=== PATIENT | male | born 1990 | race African-American/Black ===

== ENCOUNTER 2021-08-21 12:14 | Outpatient (REF) | payer BC, SELFPAY ==
[2021-08-21 13:57] LABS: Hemoglobin 14.2 g/dl (14.0-18.0); Mean Corpuscular Hemoglobin 27.6 pg (27.0-33.0); Mean Corpuscular Volume 83.7 fL (80.0-98.0); Mean Platelet Volume 11.4 fL (9.4-12.4); Platelet Count 262 X10*3/uL (160-400); Red Blood Count 5.14 X10*6/uL (4.60-5.80); Red Cell Distribution Width 12.8 % (11.0-16.0); White Blood Count 6.5 X10*3/uL (4.8-10.8)
[2021-08-21 14:13] LABS: Alanine Aminotransferase 101 U/L (0-40); Albumin Level 4.6 g/dL (3.5-5.0); Alkaline Phosphatase 108 U/L (39-117); Anion Gap 11 (12-20); Aspartate Amino Transferase 40 U/L (5-37); Bilirubin Total 0.5 mg/dL (0.0-1.0); Blood Urea Nitrogen 14 mg/dL (9-16); Carbon Dioxide 27 mmol/L (22-29); Chloride 100 mmol/L (96-108); Cholesterol 162 mg/dL; Estimated Glomerular Filt Rate > 60; Glucose Fasting 304 mg/dL (60-99); HDL Cholesterol 33 mg/dL; LDL Cholesterol Calculated 85 mg/dl; Potassium 4.2 mmol/L (3.3-5.1); Sodium 134 mmol/L (135-145); Total Protein 7.6 g/dL (6.5-8.0); Triglycerides 222 mg/dL
[2021-08-21 14:31] LABS: TSH reflex Free T4 1.16 uIU/mL (0.32-4.0)
== END 2021-08-21 12:15 | disposition home or self-care (01) ==
LOC: HO.WFDLDS 12:14
PROVIDERS: Visit Provider Hospitalist
DX: Z00.00 Encounter for general adult medical examination without abnormal findings (principal); Z13.220 Encounter for screening for lipoid disorders; Z13.29 Encounter for screening for other suspected endocrine disorder
CPT/HCPCS: 36415; 80053; 80061; 84443; 85027

== ENCOUNTER 2023-02-01 10:36 | Outpatient (AMB) | payer OTHER, SELFPAY ==
--- NOTE | 2023-02-01 10:41 | A.OFFPC_ITS ---
Vital Signs 02/01/23 10:42 Height 6 ft 1 in Weight 279 lb BMI 36.8 BP 122/74 Blood Pressure Location Lt brachial Position Sitting Pulse 70 Pulse Source Pulse Oximeter Pulse Oximetry (%) 97 Oxygen Delivery Method Room Air Intake Visit Reasons: f/u diabetes Intake Note: Patient is here to follow up on diabetes. Patient needs refill on his Glipizide. Allergies No Known Allergies Allergy (Verified 02/01/23 10:44) Tobacco use date assessed: 02/01/23 Dental Screening Dental Screen Date: 02/01/23 Did you have a dental visit in the last 12 months?: Yes Did you have a dental problem in the last 6 months where you did not have access to dental care?: No Was dental information given to patient?: No HPI f/u diabetes HPI Details 32 y/o male presents to f/u diabetes. Last A1c 09/28/21 6.2%. A1c today 02/01/23 is 7.1%. He is on metformin 750mg t.i.d and glipizide 5mg daily. He reports weight has been fluctuating. He is still working on more exercise. Pt reports groin itching. 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 1. Little interest or pleasure in doing things: not at all 2. Feeling down, depressed, or hopeless: not at all 3. Trouble falling or staying asleep, or sleeping too much: not at all 4. Feeling tired or having little energy: not at all 5. Poor appetite or overeating: not at all 6. Feeling bad about yourself - or that you are a failure or have let yourself or your family down: not at all 7. Trouble concentrating on things, such as reading the newspaper or watching television: not at all 8. Moving or speaking so slowly that other people could have noticed. Or the opposite - being so fidgety or restless that you have been moving around a lot more than usual: not at all 9. Thoughts that you would be better off or of hurting yourself in some way: not at all Total score: 0 Source: Developed by Drs. Joaquim Larkin, Marinaa Baptiste, Moi Lambert and colleagues, with an educational lois from [employer]. Thrive Questionnaire Date Thrive assessed: 06/30/22 I am a: Patient What is your living situation today?: I have a steady place to live Within the past 12 months, did the food you bought not last and you didn't have the money to get more?: Never true Within the past 12 months, did you worry whether your food would run out before you got money to buy more?: Never true Do you have trouble paying for medicines?: No Do you have trouble getting transportation to medical appointments?: No Do you have trouble paying your heating and electricity bill?: No Do you have trouble taking care of your child, family member or friend?: No Do you have trouble with day-to-day activities such as bathing, preparing meals, shopping, managing finances, etc.?: No Are you currently unemployed and looking for a job?: No Are you interested in more education?: No AUDIT C Alcohol Use Questionnaire (AUDIT-C) 1. How often do you have a drink containing alcohol?: Monthly or less 2. How many drinks containing alcohol do you have on a typical day when you are drinking?: 1 or 2 3. How often do you have six or more drinks on one occasion?: Never Total Score: 1 CLAUDINE-7 AMB Questionnaire CLAUDINE-7 Date CLAUDINE - 7 assessed: 08/21/21 Feeling nervous, anxious, or on edge: 0 = Not at all Not being able to stop or control worryin = Not at all Worrying too much about different things: 0 = Not at all Trouble relaxin = Not at all Being so restless that it is hard to sit still: 0 = Not at all Becoming easily annoyed or irritable: 0 = Not at all Feeling afraid as if something awful might happen: 0 = Not at all Total CLAUDINE-7 score (0-4 normal; 5-9 mild; 10-14 moderate; 15-21 severe): 0 Source: Developed by Drs. Joaquim Larkin, Mariana Baptiste, Moi Lambert and colleagues, with an educational lois from [employer]. Review of Systems Const Denies chills, Denies fatigue, Denies fever(s), Denies headache(s) and Denies weakness ENT Denies dizziness and Denies headache(s) Card Denies chest pain, Denies lightheadedness, Denies dyspnea and Denies other (Palpitations) Resp Denies cough, Denies dyspnea, Denies wheezing and Denies other ( shortness of breath) Musc Denies numbness and Denies tingling Neuro Denies dizziness, Denies headache(s), Denies numbness, Denies tingling, Denies paresthesias and Denies weakness Psych Denies anxiety and Denies depression Endo Denies fatigue Aller/Immun Denies wheezing Physical exam (Primary Care) Vital Signs: Last Vital Signs Pulse 70 02/01/23 10:42 BP 122/74 02/01/23 10:42 Pulse Ox 97 02/01/23 10:42 Oxygen Delivery Method Room Air 02/01/23 10:42 BMI result Body Mass Index 36.8 Tobacco/Smoking Status: Tobacco use Status Tobacco use date assessed 02/01/23 02/01/23 10:50 Patient Tobacco Use Status Never used Tobacco 02/01/23 10:43 e-Cigarette/Vaping Use Never Used 02/01/23 10:43 PHQ-9: PHQ-9 Score PHQ-9: Total score 0 02/01/23 11:17 Thrive Assessment: Date of Thrive Assessment Date Thrive assessed 06/30/22 02/01/23 10:43 Const General: no acute distress and well developed Nutritional Appearance: well nourished Orientation/consciousness: patient oriented x3 HENMT Head: Yes normocephalic and Yes atraumatic Eyes General: appearance normal, both eyes and all related structures Pupils: Equal, round and reactive pupils present EOM: EOMs intact bilaterally Resp Effort & Inspection: normal respiratory effort Auscultation: clear to auscultation bilaterally Cardio Rate: regular rate Rhythm: regular rhythm Heart sounds: S1 normal heart sound present, S2 normal heart sound present, no gallops, no murmurs and no rubs Neuro General: patient oriented x3 and gait normal Cranial nerves: Yes Equal, round and reactive pupils present Psych Affect: normal affect Results AMB Hemoglobin A1c AMB Hemoglobin A1c 7.1 % Last Edit by Josephine Ludwig CMA on 02/01/23 11:00 Results Reviewed Results Reviewed: Laboratory Last Values Hgb A1c (Clinic) 7.1 % (4.0-6.0) H 02/01/23 10:54 Assessment and Plan Assessment & Plan (1) Diabetes: Code(s): E11.9 - Type 2 diabetes mellitus without complications Plan: A1c climbed to 7.1% which is above goal of less than 7.0%. Suboptimal control Will increase glipizide and he will continue metformin Work at diabetic diet and exercise Patient requests nutrition consult so I have ordered this Had diabetic eye exam in October - he will forward the report (2) Pruritus of groin in male: Code(s): L29.8 - Other pruritus Plan: Likely tinea cruris Avoid excess moisture Can use OTC antifungal cream He will let me know if this is not improving Orders: Orders AMB Hemoglobin A1c Today Z13.9 - Encounter for screening, unspecified Referrals Nutrition/Dietitian Referral E11.9 - Type 2 diabetes mellitus without complications Medications: Changed From glipizide ER 5 mg PO DAILY 30 days 30 tabs 1RF To glipizide ER 10 mg (2 x 5 mg) PO DAILY 30 days 60 tabs 1RF Coding Level of Care Code Est Pt Level 3 (59097) Diagnoses Diabetes E11.9 Pruritus of groin in male L29.8
[2023-02-01 10:42] VITALS: BP 122/74; PULSE 70; O2SAT 97; BMI 36.8
== END 2023-02-01 11:30 | disposition home or self-care (01) ==
PROVIDERS: Visit Provider Family Medicine
DX: E11.9 Type 2 diabetes mellitus without complications (principal); L29.8 Other pruritus
CPT/HCPCS: 83036; 99213

== ENCOUNTER 2023-03-16 09:57 | Outpatient (AMB) | payer OTHER, SELFPAY ==
--- NOTE | 2023-03-16 10:10 | A.OFFVIS_ITS ---
Intake VS Expanded 03/16/23 10:12 03/20/23 16:43 Height 6 ft 1 in 6 ft 1 in Weight 275 lb 5.718 oz 275 lb BMI 36.3 36.3 Intake Visit Reasons: DM2/Confirmed Allergies No Known Allergies Allergy (Verified 02/01/23 10:44) HPI Nutrition Presentation Details Pt presents for MNT for T2DM . Pt was referred by Dr. Stoner Pt works 10-12 hr, shifts and reports having challenges with night meals DM dx since 2020 typical meal first meal 12:30 -1: 30 breakfast sand or cheerios with fat free milk snack : fruit 6:30 pm wraps rios/turkey/ham/bologna and salami,, no greens 3am : chips/ salad food frequency fruits: 1-3/d vegetables : 1-3 serving/d starches > 20 serving/d dairy: > 3 serving/d protein > 15 oz/d ETOH: occ Smoking: denies BTK-Kjhyclb-Fb.Jeor Equation Height 6 ft 1 in Weight 275 lb Resting Metabolic Rate 2262.41 Calculated Activity Level Mild Activity Calories Needed to Maintain Weight 3110.81 Diagnosis Nutrition problem #1 food nutri know defi As related to (etiology) #1 diagnosis As evidenced by (sign/symptom) #1 knowledge deficit of diet Monitoring/Goals Nutrition problem monitoring level of knowledge/skill Learning/Education Readiness to learn good Stages of change action Educational materials provided Yes (mealplanning) Most Recent Diabetes Results: Cholesterol 162 mg/dL 08/21/21 HDL Cholesterol 33 mg/dL 08/21/21 Triglycerides 222 mg/dL 08/21/21 Creatinine 1.18 mg/dL (0.5-1.4) 08/21/21 Blood Urea Nitrogen 14 mg/dL (9-16) 08/21/21 Sodium 134 mmol/L (135-145) L 08/21/21 Potassium 4.2 mmol/L (3.3-5.1) 08/21/21 Chloride 100 mmol/L (96-108) 08/21/21 Carbon Dioxide 27 mmol/L (22-29) 08/21/21 Calcium 10.0 mg/dL (8.4-10.2) 08/21/21 AST 40 U/L (5-37) H 08/21/21 ALT 101 U/L (0-40) H 08/21/21 Total Protein 7.6 g/dL (6.5-8.0) 08/21/21 Albumin 4.6 g/dL (3.5-5.0) 08/21/21 [facility] Medical History Elevated blood sugar History of head injury Family History Mother Diabetes Social History Housing: Apartment Patient Tobacco Use Status: Never used Tobacco e-Cigarette/Vaping Use: Never Used Second Hand Smoke Exposure: No service: No Current occupational status: employed 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 Current occupational exposures/hazards: No Cognitive needs: No Hearing needs: No Vision needs: No Assessment & Plan Assessment & Plan (1) Diabetes: Code(s): E11.9 - Type 2 diabetes mellitus without complications Plan: wt: 125 kg Est kcal needs as per MSJ: 3100 (40% carb, 30% protein/fat) Est fluid needs as per 30 ml/d: 3800 Est prot per day as per 1 g/kg bw: 125 Recommend fiber intake : 8-10 g per day and gradually increase to 25-28 g per day for women and 35-38 g for men or as tolerated Recommend sodium intake per day : less than 2000 mg Educated patient on: ( R = reviewed V = verbalizes understanding N/R = needs review N/A = not applicable * Food sources of carbohydrate, adequate serving sizes and its role in various health conditions: R * Differences between complex carbohydrates a simple carbohydrates, role of fiber in diet: R * Differences between types of fats and role in diet (mono on saturated fat fatty acids, saturated fatty acids, trans fats): R basic * Food sources of sodium in salt and healthy modifications for heart health in kidney health: R * Healthy plate method concept: R * Physical activity: Benefits a precaution: R V * Hypoglycemia protocol (rule of 15): R * Dietary prevention of Hyperglycemia: R * ETOH intake : precaution with DM, liver health Patient Instructions: Balance your meals and snacks following healthy plate method Choose a meal replacement once/day see meal ideas as reference Abstain from alcohol consumption Keep physically active Coding Level of Care Code Nutr Indiv Intake (11438) Diagnoses Diabetes E11.9 Time Spent (min) 40
[2023-03-16 10:12] VITALS: BMI 36.3
[2023-03-20 16:43] VITALS: BMI 36.3
== END 2023-03-16 11:06 | disposition home or self-care (01) ==
PROVIDERS: PCP Family Medicine; Visit Provider Dietitian, Registered
DX: E11.9 Type 2 diabetes mellitus without complications (principal)

== ENCOUNTER → 2023-03-16 09:57 | Outpatient (BNVA) | payer OTHER, SELFPAY | PROVIDERS: PCP Family Medicine; Visit Provider Dietitian, Registered | DX: E11.9 Type 2 diabetes mellitus without complications (principal); Z71.3 Dietary counseling and surveillance | CPT/HCPCS: 97802 ==

== ENCOUNTER 2023-05-03 09:21 | Outpatient (AMB) | payer OTHER, SELFPAY ==
[2023-05-03 09:31] VITALS: BP 112/64; PULSE 71; O2SAT 98; BMI 35.9
--- NOTE | 2023-05-03 09:31 | MHC.PC.OV ---
Vital Signs 05/03/23 09:31 Height 6 ft 1 in Weight 272 lb 8 oz BMI 35.9 BP 112/64 Blood Pressure Location Rt brachial Position Sitting Pulse 71 Pulse Source Pulse Oximeter Pulse Oximetry (%) 98 Oxygen Delivery Method Room Air Intake Visit Reasons: f/u diabetes Intake Note: Patient is here today to follow up on his diabetes. He would like refills on both his meds. Allergies No Known Allergies Allergy (Verified 05/03/23 09:34) Tobacco use date assessed: 05/03/23 Dental Screening Dental Screen Date: 05/03/23 Did you have a dental visit in the last 12 months?: Yes Did you have a dental problem in the last 6 months where you did not have access to dental care?: No Was dental information given to patient?: Patient has dentist HPI f/u diabetes HPI Details 32 y/o male presents to f/u diabetes. A1c had climbed to 7.1% so I had increased his glipizide. A1c today 05/03/23 is 6.6%. He is on metformin 750mg t.i.d. and glipizide 10mg daily. Pt notes lowest blood sugar reading he got was in his 70s, no higher than 130s. He does work second shift and eats lunch at around 6pm. He notes last eye exam was in October. HPI Comments History of Present Illness Details Documentation assistance for Xavier Stoner MD, was provided by Chauncey Morrison, Wildlife Ecology Professor on 05/03/2023 10:13 AM EST. I, Dr. Stoner, have read, observed, and verified documentation. 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 Joaquim Larkin, Mariana Baptiste, Moi Lambert and colleagues, with an educational lois from [employer]. Review of Systems Const Denies chills, Denies fatigue, Denies fever(s), Denies headache(s) and Denies weakness ENT Denies dizziness and Denies headache(s) Card Denies dyspnea Resp Denies cough, Denies dyspnea, Denies wheezing and Denies other (shortness of breath) Musc Denies numbness and Denies tingling Neuro Denies dizziness, Denies headache(s), Denies numbness, Denies tingling and Denies weakness Psych Denies anxiety and Denies depression Endo Denies fatigue Aller/Immun Denies wheezing Physical exam (Primary Care) Vital Signs: Last Vital Signs Pulse 71 05/03/23 09:31 BP 112/64 05/03/23 09:31 Pulse Ox 98 05/03/23 09:31 Oxygen Delivery Method Room Air 05/03/23 09:31 BMI result Body Mass Index 35.9 Tobacco/Smoking Status: Tobacco use Status Tobacco use date assessed 05/03/23 05/03/23 09:39 Patient Tobacco Use Status Never used Tobacco 05/03/23 09:39 e-Cigarette/Vaping Use Never Used 05/03/23 09:39 Thrive Assessment: Date of Thrive Assessment Date Thrive assessed 06/30/22 05/03/23 09:39 Const General: well developed; No acute distress Nutritional Appearance: well nourished Orientation/consciousness: patient oriented x3 [facility]: Yes normocephalic and Yes atraumatic Eyes General: appearance normal, both eyes and all related structures Pupils: Equal, round and reactive pupils present EOM: EOMs intact bilaterally Resp Effort & Inspection: normal respiratory effort Auscultation: clear to auscultation bilaterally Cardio Rate: regular rate Rhythm: regular rhythm Heart sounds: S1 normal heart sound present, S2 normal heart sound present, no gallops, no murmurs and no rubs Neuro General: patient oriented x3 and gait normal Cranial nerves: Yes Equal, round and reactive pupils present Psych Affect: normal affect Results AMB Hemoglobin A1c AMB Hemoglobin A1c 6.6 % Last Edit by Josephine Ludwig CMA on 05/03/23 09:56 Results Reviewed Results Reviewed: Laboratory Last Values Hgb A1c (Clinic) 6.6 % (4.0-6.0) H 05/03/23 09:55 Assessment and Plan Assessment & Plan (1) Diabetes: Code(s): E11.9 - Type 2 diabetes mellitus without complications Plan: A1c?now?6.6%?but?he?has?been?getting?some?blood?sugars?down?into?the?low?70s?with?some?shakiness?and?sweating. Goal?is?less?than?7.0% He?will?continue?metformin?he?will?take?glipizide?ER?5?mg?in?the?morning?and?2.5?mg?in?the?afternoon If?blood?sugars?are?getting?close?to?70?and?he?is?feeling?sweaty?or?shaky,?he?will?have?a?small?snack?and?recheck?blood?sugars?in?about?15?minutes Continue?diabetic?diet Had?eye?exam?in?May?and?is?up-to-date. Orders: Orders AMB Hemoglobin A1c Today Z13.9 - Encounter for screening, unspecified Coding Level of Care Code Est Pt Level 3 (95166) Diagnoses Diabetes E11.9
== END 2023-05-03 10:15 | disposition home or self-care (01) ==
PROVIDERS: PCP Family Medicine; Visit Provider Family Medicine
DX: E11.9 Type 2 diabetes mellitus without complications (principal)
CPT/HCPCS: 83036; 99213

== ENCOUNTER 2023-05-03 11:36 | Outpatient (AMB) | payer OTHER, SELFPAY ==
--- NOTE | 2023-05-03 11:41 | A.OFFVIS_ITS ---
Intake VS Expanded 05/03/23 12:22 Height 6 ft 1 in Weight 272 lb 8 oz BMI 35.9 Intake Visit Reasons: T2DM Allergies No Known Allergies Allergy (Verified 05/03/23 09:34) HPI Nutrition Presentation Details Pt presents for MNT for T2DM Pt reports following healthy plate method , reducing on sugars. Pt reports having had low blood glucose reactions, feeling sweaty and shaky. Pt saw PCP today and Glipizide dosage was reduced. Pt reports keeping hydrated , drinking water with meals, choosing low sugar beverages and doing his best at reducing on high sugar foods/pastries and similar foods. 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 Current occupational exposures/hazards: No Cognitive needs: No Hearing needs: No Vision needs: No Assessment & Plan Assessment & Plan (1) Diabetes: Code(s): E11.9 - Type 2 diabetes mellitus without complications Plan: wt: 125 kg (123 kg on 04/2023) Est kcal needs as per MSJ: 3100 (40% carb, 30% protein/fat) Est fluid needs as per 30 ml/d: 3800 Est prot per day as per 1 g/kg bw: 123 Recommend fiber intake : 8-10 g per day and gradually increase to 25-28 g per day for women and 35-38 g for men or as tolerated Recommend sodium intake per day : less than 2000 mg Educated patient on: ( R = reviewed V = verbalizes understanding N/R = needs review N/A = not applicable * Food sources of carbohydrate, adequate serving sizes and its role in various health conditions: R * Differences between complex carbohydrates a simple carbohydrates, role of fiber in diet: R * Differences between types of fats and role in diet (mono on saturated fat fatty acids, saturated fatty acids, trans fats): R basic * Food sources of sodium in salt and healthy modifications for heart health in kidney health: R ,V * Healthy plate method concept: R * Physical activity: Benefits a precaution: R V * Hypoglycemia protocol (rule of 15): R * Dietary prevention of Hyperglycemia: R * ETOH intake : precaution with DM, liver health Patient Instructions: Follow DASH diet ( low sodium options) Continue working on having smaller meals throghout the day, choosing higher fiber foods and including lean protein foods Include 4 serving of calcium and vit d per day ( low fat milk, yogurt, spinach, kale, okra, collards, white beans, keep physically active goal 150 min per week follow rule of 15 to treat low blood sugar (treat with 15 g carbs , recheck in 15 minutes , repeat treatment if blood sugar continues below 15) inform your doctor of low blood sugar reactions for further asessment. Coding Level of Care Code Nutr Indiv Subseq (08033) Diagnoses Diabetes E11.9 Time Spent (min) 30
[2023-05-03 12:22] VITALS: BMI 35.9
== END 2023-05-03 12:21 | disposition home or self-care (01) ==
PROVIDERS: PCP Family Medicine; Visit Provider Dietitian, Registered
DX: E11.9 Type 2 diabetes mellitus without complications (principal)

== ENCOUNTER → 2023-05-03 11:36 | Outpatient (BNVA) | payer OTHER, SELFPAY | PROVIDERS: PCP Family Medicine; Visit Provider Dietitian, Registered | DX: Z71.3 Dietary counseling and surveillance (principal); E11.9 Type 2 diabetes mellitus without complications | CPT/HCPCS: 97803 ==

== ENCOUNTER 2023-08-02 11:28 | Outpatient (AMB) | payer OTHER, SELFPAY ==
[2023-08-02 11:41] VITALS: BP 132/66; PULSE 81; O2SAT 99; BMI 35.8
--- NOTE | 2023-08-02 11:41 | MHC.PC.OV ---
Vital Signs 08/02/23 11:41 Height 6 ft 1 in Weight 271 lb BMI 35.8 BP 132/66 Blood Pressure Location Lt brachial Position Sitting Pulse 81 Pulse Source Pulse Oximeter Pulse Oximetry (%) 99 Oxygen Delivery Method Room Air Intake Visit Reasons: f/u diabetes Intake Note: Patient is here to follow up on his diabetes today. Allergies shellfish derived Allergy (Mild, Verified 08/02/23 11:43) Swelling Tobacco use date assessed: 08/02/23 HPI f/u diabetes HPI Details 33 y/o male presents to f/u diabetes. Had recently decreased his glipizide. A1c today 08/02/23 5.9%. 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 Joaquim Larkin, Mariana Baptiste, Moi Lambert and colleagues, with an educational lois from [employer]. Review of Systems Const Denies chills, Denies fatigue, Denies fever(s), Denies headache(s) and Denies weakness ENT Denies dizziness and Denies headache(s) Card Denies chest pain, Denies lightheadedness, Denies dyspnea and Denies other (Palpitations) Resp Denies cough, Denies dyspnea, Denies wheezing and Denies other ( shortness of breath) Musc Denies numbness and Denies tingling Neuro Denies dizziness, Denies headache(s), Denies numbness, Denies tingling, Denies paresthesias and Denies weakness Psych Denies anxiety and Denies depression Endo Denies fatigue Aller/Immun Denies wheezing Physical exam (Primary Care) Vital Signs: Last Vital Signs Pulse 81 08/02/23 11:41 BP 132/66 08/02/23 11:41 Pulse Ox 99 08/02/23 11:41 Oxygen Delivery Method Room Air 08/02/23 11:41 BMI result Body Mass Index 35.8 Tobacco/Smoking Status: Tobacco use Status Tobacco use date assessed 08/02/23 08/02/23 11:44 Patient Tobacco Use Status Never used Tobacco 08/02/23 11:44 e-Cigarette/Vaping Use Never Used 08/02/23 11:44 Thrive Assessment: Date of Thrive Assessment Date Thrive assessed 06/30/22 08/02/23 11:44 Const General: no acute distress and well developed Nutritional Appearance: well nourished Orientation/consciousness: patient oriented x3 HENMT Head: Yes normocephalic and Yes atraumatic Eyes General: appearance normal, both eyes and all related structures Pupils: Equal, round and reactive pupils present EOM: EOMs intact bilaterally Resp Effort & Inspection: normal respiratory effort Auscultation: clear to auscultation bilaterally Cardio Rate: regular rate Rhythm: regular rhythm Heart sounds: S1 normal heart sound present, S2 normal heart sound present, no gallops, no murmurs and no rubs Neuro General: patient oriented x3 and gait normal Cranial nerves: Yes Equal, round and reactive pupils present Psych Affect: normal affect Results AMB Hemoglobin A1c AMB Hemoglobin A1c 5.9 % Last Edit by Josephine Ludwig CMA on 08/02/23 11:58 Results Reviewed Results Reviewed: Laboratory Last Values Hgb A1c (Clinic) 5.9 % (4.0-6.0) 08/02/23 11:50 Assessment and Plan Assessment & Plan (1) Diabetes: Code(s): E11.9 - Type 2 diabetes mellitus without complications Plan: Had Decreased?glipizide?and?A1c?still?shows?good?control;?5.9%.??Goal?is?less?than?7.0% He?still?notes?some?low?blood?sugars. Will?decrease?glipizide?again?from?5?mg?a.m.?and?2.5?mg?p.m. to 2.5?mg?b.i.d. Continue?metformin?as?prescribed Continue?diabetic?diet (2) Jock itch: Code(s): B35.6 - Tinea cruris Plan: Will?send?script?for?clotrimazole Avoid?excess?moisture?but?do?not?dry?out?skin Change?undergarments?twice?a?day Orders: Orders AMB Hemoglobin A1c Today Z13.9 - Encounter for screening, unspecified Complete Blood Count Auto Diff Today Z00.00 - Encounter for general adult medical examination without abnormal findings Lipid Panel Today Z00.00 - Encounter for general adult medical examination without abnormal findings Comprehensive Waves. Panel Fast Today Z00.00 - Encounter for general adult medical examination without abnormal findings Microalbumin, Random (w Creat) Today I10 - Essential (primary) hypertension UA and rflx microscopic Today Z00.00 - Encounter for general adult medical examination without abnormal findings TSH reflex Free T4 Today Z00.00 - Encounter for general adult medical examination without abnormal findings Medications: New clotrimazole 1% 1 appl topical BID 45 grams 1RF 2 weeks Changed From glipizide ER 10 mg (2 x 5 mg) PO DAILY 30 days 60 tabs 1RF To glipizide ER 2.5 mg (1/2 x 5 mg) PO BID 30 days 30 tabs 1RF Coding Level of Care Code Est Pt Level 3 (49879) Diagnoses Diabetes E11.9 Jock itch B35.6
== END 2023-08-02 12:28 | disposition home or self-care (01) ==
PROVIDERS: PCP Family Medicine; Visit Provider Family Medicine
DX: E11.9 Type 2 diabetes mellitus without complications (principal); B35.6 Tinea cruris
CPT/HCPCS: 83036; 99213

== ENCOUNTER 2023-08-02 12:25 | Outpatient (REF) | payer OTHER, SELFPAY ==
[2023-08-02 14:48] LABS: MANUAL DIFF FLAG NO
[2023-08-02 14:53] LABS: Basophils Percent Auto 0.3 % (0-2); Eosinophils Absolute Auto 0.4 X10*3/uL (0.0-0.4); Eosinophils Percent Auto 6.2 % (0-4); Hematocrit 42.9 % (42.0-52.0); Hemoglobin 14.1 g/dl (14.0-18.0); Imm Gran Abs Auto 0.01 X10*3/uL (0.00-0.03); Imm Gran Pct Auto 0.2 % (0.0-0.4); Lymphocytes Percent Auto 33.8 % (20-40); Mean Corpuscular HGB Conc 32.9 g/dl (31.0-36.0); Mean Corpuscular Hemoglobin 27.6 pg (27.0-33.0); Mean Corpuscular Volume 84.1 fL (80.0-98.0); Mean Platelet Volume 9.9 fL (9.4-12.4); Monocytes Absolute Auto 0.5 X10*3/uL (0.1-1.2); Monocytes Percent Auto 8.1 % (2-11); Neutrophils Percent Auto 51.4 % (45-73); Platelet Count 306 X10*3/uL (160-400); Red Cell Distribution Width 13.8 % (11.0-16.0); White Blood Count 5.8 X10*3/uL (4.8-10.8)
[2023-08-02 15:34] LABS: Alanine Aminotransferase 30 U/L (0-40); Albumin Level 4.4 g/dL (3.5-5.0); Alkaline Phosphatase 74 U/L (39-117); Anion Gap 11 (12-20); Aspartate Amino Transferase 17 U/L (5-37); Bilirubin Total 0.4 mg/dL (0.0-1.0); Blood Urea Nitrogen 16 mg/dL (9-16); Calcium 9.8 mg/dL (8.4-10.2); Carbon Dioxide 26 mmol/L (22-29); Chloride 106 mmol/L (96-108); Cholesterol 121 mg/dL (<200); Estimated Glomerular Filt Rate > 60; Glucose Fasting 83 mg/dL (60-99); HDL Cholesterol 35 mg/dL (>40); LDL Cholesterol Calculated 77 mg/dL (<100); Potassium 4.4 mmol/L (3.3-5.1); Sodium 139 mmol/L (135-145); Total Protein 7.6 g/dL (6.5-8.0); Triglycerides 48 mg/dL (<150)
[2023-08-02 15:40] LABS: TSH reflex Free T4 0.97 uIU/mL (0.32-4.0)
== END 2023-08-02 12:26 | disposition home or self-care (01) ==
LOC: HO.WFDLDS 12:25
PROVIDERS: Visit Provider Family Medicine
DX: Z00.00 Encounter for general adult medical examination without abnormal findings (principal)
CPT/HCPCS: 36415; 80053; 80061; 84443; 85025

== ENCOUNTER 2023-08-03 11:23 | Outpatient (AMB) | payer OTHER, SELFPAY ==
[2023-08-03 11:41] VITALS: BMI 35.6
--- NOTE | 2023-08-03 11:41 | A.OFFVIS_ITS ---
Intake VS Expanded 08/03/23 11:41 Height 6 ft 1 in Weight 269 lb 13.533 oz BMI 35.6 Intake Visit Reasons: T2DM/CONFIRMED Allergies shellfish derived Allergy (Mild, Verified 08/02/23 11:43) Swelling HPI Nutrition Presentation Details Pt presents for MNT follow up for T2DM Patient reports doing well, reports working on having small meals throughout the day. Pt reports having fruits 4+ /day having dairy/yogurt: daily 2+ fish : 2 x/wk ( tuna, salmon) denies constipation /diarrhea/vomiting physical activity: 1 hour at gym and also movement at work Hemoglobin A1c has improved: at 5.9% on June 2023 Most Recent Diabetes Results: Cholesterol 121 mg/dL (<200) 08/02/23 HDL Cholesterol 35 mg/dL (>40) L 08/02/23 Triglycerides 48 mg/dL (<150) 08/02/23 Creatinine 1.02 mg/dL (0.5-1.4) 08/02/23 Blood Urea Nitrogen 16 mg/dL (9-16) 08/02/23 Sodium 139 mmol/L (135-145) 08/02/23 Potassium 4.4 mmol/L (3.3-5.1) 08/02/23 Chloride 106 mmol/L (96-108) 08/02/23 Carbon Dioxide 26 mmol/L (22-29) 08/02/23 Calcium 9.8 mg/dL (8.4-10.2) 08/02/23 AST 17 U/L (5-37) 08/02/23 ALT 30 U/L (0-40) 08/02/23 Total Protein 7.6 g/dL (6.5-8.0) 08/02/23 Albumin 4.4 g/dL (3.5-5.0) 08/02/23 [facility] Medical History Elevated blood sugar History of head injury Family History Mother Diabetes Social History Housing: Apartment Patient Tobacco Use Status: Never used Tobacco e-Cigarette/Vaping Use: Never Used Second Hand Smoke Exposure: No service: No Current occupational status: employed 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 Current occupational exposures/hazards: No Cognitive needs: No Hearing needs: No Vision needs: No Assessment & Plan Assessment & Plan (1) Diabetes: Code(s): E11.9 - Type 2 diabetes mellitus without complications Plan: wt: 125 kg (123 kg on 04/2023) , 123 kg (July 2023) Est kcal needs as per MSJ: 3100 (40% carb, 30% protein/fat) Est fluid needs as per 30 ml/d: 3800 Est prot per day as per 1 g/kg bw: 123 Recommend fiber intake : 8-10 g per day and gradually increase to 25-28 g per day for women and 35-38 g for men or as tolerated Recommend sodium intake per day : less than 2000 mg Educated patient on: ( R = reviewed V = verbalizes understanding N/R = needs review N/A = not applicable * Food sources of carbohydrate, adequate serving sizes and its role in various health conditions: R * Differences between complex carbohydrates a simple carbohydrates, role of fiber in diet: R * Differences between types of fats and role in diet (mono on saturated fat fatty acids, saturated fatty acids, trans fats): R basic * Food sources of sodium in salt and healthy modifications for heart health in kidney health: R ,V * Healthy plate method concept: R * Physical activity: Benefits a precaution: R V * Hypoglycemia protocol (rule of 15): R * Dietary prevention of Hyperglycemia: R * ETOH intake : precaution with DM, liver health Patient Instructions: Continue working on following healthy plate method, being mindful of high sugar foods Keep hydrated by having water with meals and/or snacks Include food sources of vitamin-D, calcium Treat low blood glucose by following rule of 15, communicate with her doctor if having low blood sugar episodes (blood sugar less than 70) Coding Level of Care Code Nutr Indiv Subseq (47616) Diagnoses Diabetes E11.9 Time Spent (min) 20
== END 2023-08-03 12:26 | disposition home or self-care (01) ==
PROVIDERS: PCP Family Medicine; Visit Provider Dietitian, Registered
DX: E11.9 Type 2 diabetes mellitus without complications (principal)

== ENCOUNTER → 2023-08-03 11:23 | Outpatient (BNVA) | payer OTHER, SELFPAY | PROVIDERS: PCP Family Medicine; Visit Provider Dietitian, Registered | DX: E11.9 Type 2 diabetes mellitus without complications (principal); Z71.3 Dietary counseling and surveillance | CPT/HCPCS: 97803 ==

== ENCOUNTER 2023-11-01 12:57 | Outpatient (AMB) | payer OTHER, SELFPAY ==
--- NOTE | 2023-11-01 13:02 | A.OFFVIS_ITS ---
VS Expanded 11/01/23 13:03 Height 6 ft 1 in Weight 274 lb 4.081 oz BMI 36.2 Intake Visit Reasons: T2DM/ CONFIRMED Allergies shellfish derived Allergy (Mild, Verified 08/02/23 11:43) Swelling Nutrition Presentation Details: Pt presents for MNT f/u for T2DM Pt reports doing ok. Reports noticing bg gradually increasing related to increased appetite and including higher sugar foods in diet. 14 d bg average 145 mg/dl BS Monitoring Most Recent Diabetes Results: Cholesterol 121 mg/dL (<200) 08/02/23 HDL Cholesterol 35 mg/dL (>40) L 08/02/23 Triglycerides 48 mg/dL (<150) 08/02/23 Creatinine 1.02 mg/dL (0.5-1.4) 08/02/23 Blood Urea Nitrogen 16 mg/dL (9-16) 08/02/23 Sodium 139 mmol/L (135-145) 08/02/23 Potassium 4.4 mmol/L (3.3-5.1) 08/02/23 Chloride 106 mmol/L (96-108) 08/02/23 Carbon Dioxide 26 mmol/L (22-29) 08/02/23 Calcium 9.8 mg/dL (8.4-10.2) 08/02/23 AST 17 U/L (5-37) 08/02/23 ALT 30 U/L (0-40) 08/02/23 Total Protein 7.6 g/dL (6.5-8.0) 08/02/23 Albumin 4.4 g/dL (3.5-5.0) 08/02/23 [facility] Medical History Elevated blood sugar History of head injury Family History Mother Diabetes Social History Housing: Apartment Patient Tobacco Use Status: Never used Tobacco e-Cigarette/Vaping Use: Never Used Second Hand Smoke Exposure: No service: No Current occupational status: employed 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 Current occupational exposures/hazards: No Cognitive needs: No Hearing needs: No Vision needs: No Assessment & Plan Assessment & Plan (1) Diabetes: Code(s): E11.9 - Type 2 diabetes mellitus without complications Category: Medical Plan: wt: 125 kg (123 kg on 04/2023) , 123 kg (July 2023), 124.5 (10/2023) Est kcal needs as per MSJ: 3100 (40% carb, 30% protein/fat) Est fluid needs as per 30 ml/d: 3800 Est prot per day as per 1 g/kg bw: 123 Recommend fiber intake : 8-10 g per day and gradually increase to 25-28 g per day for women and 35-38 g for men or as tolerated Recommend sodium intake per day : less than 2000 mg Educated patient on: ( R = reviewed V = verbalizes understanding N/R = needs review N/A = not applicable * Food sources of carbohydrate, adequate serving sizes and its role in various health conditions: R * Differences between complex carbohydrates a simple carbohydrates, role of fiber in diet: R * Differences between types of fats and role in diet (mono on saturated fat fatty acids, saturated fatty acids, trans fats): R basic * Food sources of sodium in salt and healthy modifications for heart health in kidney health: R ,V * Healthy plate method concept: R * Physical activity: Benefits a precaution: R V * Hypoglycemia protocol (rule of 15): R * Dietary prevention of Hyperglycemia: R * ETOH intake : precaution with DM, liver health Patient Instructions: Resume reducing on simple carbohydrates (pastries/cookies and ice cream and similar foods) Try fruit/herb infused water Include high fiber foods to help with satiety (raw veg, raw fruits, whole grain foods) Keep maintaining physically active Consider taking a multivitamin Coding Level of Care Code Nutr Indiv Subseq (07179) Diagnoses Diabetes E11.9 Time Spent (min) 30
[2023-11-01 13:03] VITALS: BMI 36.2
== END 2023-11-01 13:45 | disposition home or self-care (01) ==
PROVIDERS: PCP Family Medicine; Visit Provider Dietitian, Registered
DX: E11.9 Type 2 diabetes mellitus without complications (principal)

== ENCOUNTER → 2023-11-01 12:57 | Outpatient (BNVA) | payer BC, SELFPAY | PROVIDERS: PCP Family Medicine; Visit Provider Dietitian, Registered | DX: E11.9 Type 2 diabetes mellitus without complications (principal); Z71.3 Dietary counseling and surveillance | CPT/HCPCS: 97803 ==

== ENCOUNTER 2023-11-15 10:54 | Outpatient (AMB) | payer BC, SELFPAY ==
[2023-11-15 10:59] VITALS: BP 122/62; PULSE 71; O2SAT 97; BMI 35.6
--- NOTE | 2023-11-15 10:59 | MHC.PC.OV ---
Vital Signs 11/15/23 10:59 Height 6 ft 1 in Weight 269 lb 8 oz BMI 35.6 BP 122/62 Blood Pressure Location Lt brachial Position Sitting Pulse 71 Pulse Source Pulse Oximeter Pulse Oximetry (%) 97 Oxygen Delivery Method Room Air Intake Visit Reasons: CPE with f/u labs and health maint. Intake Note: Patient is here for his physical and follow up on labs. Allergies shellfish derived Allergy (Mild, Verified 11/15/23 11:01) Swelling Medication List - Last Reconciled 11/15/23 by Xavier Stoner MD clotrimazole 1% 1 appl topical BID 2 weeks glipizide ER 2.5 mg (1/2 x 5 mg) PO BID 30 days metformin 750 mg (1.5 x 500 mg) PO TIDWMEAL 30 days Tobacco use date assessed: 11/15/23 Dental Screening Dental Screen Date: 11/15/23 Did you have a dental visit in the last 12 months?: Yes Did you have a dental problem in the last 6 months where you did not have access to dental care?: No Was dental information given to patient?: Patient has dentist HPI CPE with f/u labs and health maint. HPI Details 33 y/o male presents for a CPE with f/u labs and health maintenance. Labs were drawn 08/02/23. Reviewed labs with pt. Triglycerides 48. TC 121. LDL 77. HDL low at 35. Last A1c 08/02/23 5.9%. He is on metformin 750mg, glipizide 2.5mg. A1c today 11/15/23 6.6%. Pt notes he keeps himself active. 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 1. Little interest or pleasure in doing things: not at all 2. Feeling down, depressed, or hopeless: not at all 3. Trouble falling or staying asleep, or sleeping too much: not at all 4. Feeling tired or having little energy: not at all 5. Poor appetite or overeating: not at all 6. Feeling bad about yourself - or that you are a failure or have let yourself or your family down: not at all 7. Trouble concentrating on things, such as reading the newspaper or watching television: not at all 8. Moving or speaking so slowly that other people could have noticed. Or the opposite - being so fidgety or restless that you have been moving around a lot more than usual: not at all 9. Thoughts that you would be better off or of hurting yourself in some way: not at all Total score: 0 Depression Screening Interpretation: Negative Depression Screening Done: Yes 90503 - PHQ-9 Billing: Yes Source: Developed by Drs. Joaquim Larkin, Mariana Baptiste, Moi Lambert and colleagues, with an educational lois from [employer]. Thrive Questionnaire Date Thrive assessed: 11/15/23 I am a: Patient What is your living situation today?: I have a steady place to live Within the past 12 months, did the food you bought not last and you didn't have the money to get more?: Never true Within the past 12 months, did you worry whether your food would run out before you got money to buy more?: Never true Do you have trouble paying for medicines?: No Do you have trouble getting transportation to medical appointments?: No Do you have trouble paying your heating and electricity bill?: No Do you have trouble taking care of your child, family member or friend?: No Do you have trouble with day-to-day activities such as bathing, preparing meals, shopping, managing finances, etc.?: No Are you currently unemployed and looking for a job?: No Are you interested in more education?: Yes THRIVE Score: 0 AUDIT C Alcohol Use Questionnaire (AUDIT-C) 1. How often do you have a drink containing alcohol?: Never 3. How often do you have six or more drinks on one occasion?: Never Total Score: 0 CLAUDINE-7 AMB Questionnaire CLAUDINE-7 Date CLAUDINE - 7 assessed: 11/15/23 Feeling nervous, anxious, or on edge: 0 = Not at all Not being able to stop or control worryin = Not at all Worrying too much about different things: 0 = Not at all Trouble relaxin = Not at all Being so restless that it is hard to sit still: 0 = Not at all Becoming easily annoyed or irritable: 0 = Not at all Feeling afraid as if something awful might happen: 0 = Not at all Total CLAUDINE-7 score (0-4 normal; 5-9 mild; 10-14 moderate; 15-21 severe): 0 Source: Developed by Drs. Joaquim Larkin, Mariana Baptiste, Moi Lambert and colleagues, with an educational lois from [employer]. CLAUDINE-7 Assessment Billing CLAUDINE-7 Assessment Tool: CLAUDINE-7 Assessment 23888 Review of Systems Const Denies chills, Denies fatigue, Denies fever(s), Denies headache(s) and Denies weakness Eyes Denies change in vision ENT Denies dizziness, Denies headache(s), Denies hearing loss, Denies nasal congestion, Denies sinus pain, Denies sinus pressure and Denies sore throat Card Denies chest pain, Denies lightheadedness, Denies dyspnea and Denies other (palpitations) Resp Denies cough, Denies dyspnea and Denies wheezing GI Denies abdominal pain, Denies melena, Denies hematochezia, Denies change in bowel habits, Denies dyspepsia and Denies nausea Denies hematuria and Denies dysuria Musc Denies abnormal gait, Denies myalgias, Denies arthralgias, Denies numbness and Denies tingling Skin/Breast Denies rash, Denies unusual bruising and Denies wounds Neuro Denies abnormal gait, Denies dizziness, Denies headache(s), Denies memory loss, Denies numbness, Denies Sensory deficit (Neuro), Denies tingling and Denies weakness Psych Denies anxiety, Denies depression and Denies memory loss Endo Denies cold intolerance, Denies fatigue, Denies heat intolerance, Denies polydipsia and Denies polyuria Gal/Lymph Denies easy bleeding and Denies easy bruising Aller/Immun Denies wheezing Physical exam (Primary Care) Vital Signs: Last Vital Signs Pulse 71 11/15/23 10:59 BP 122/62 11/15/23 10:59 Pulse Ox 97 11/15/23 10:59 Oxygen Delivery Method Room Air 11/15/23 10:59 BMI result Body Mass Index 35.6 Tobacco/Smoking Status: Tobacco use Status Tobacco use date assessed 11/15/23 11/15/23 11:02 Patient Tobacco Use Status Never used Tobacco 11/15/23 10:59 e-Cigarette/Vaping Use Never Used 11/15/23 10:59 PHQ-9: PHQ-9 Score PHQ-9: Total score 0 11/15/23 11:13 Depression Screening Interpretation: Negative Thrive Assessment: Date of Thrive Assessment Date Thrive assessed 11/15/23 11/15/23 11:09 Const General: no acute distress, well developed, alert and awake Nutritional Appearance: well nourished Orientation/consciousness: patient oriented x3 HENMT Head: Yes normocephalic and Yes atraumatic Ears: hearing grossly normal bilaterally and TM's normal bilaterally General nose exam: Normal external nose present and Normal nares present Mouth: Normal oral and palatal mucosa present and moist mucous membranes Teeth and gingiva: dentition normal Throat: Yes posterior oropharynx normal Eyes General: appearance normal, both eyes and all related structures Pupils: Equal, round and reactive pupils present and Pupil accommodation reflex normal EOM: EOMs intact bilaterally Neck Neck: Yes normal visual inspection, Yes no lymphadenopathy and Yes trachea midline Thyroid: Thyroid normal Carotids: no bruits Lymphatic: no lymphadenopathy noted Chest Chest palpation & inspection: normal inspection of the chest Resp Effort & Inspection: normal respiratory effort Auscultation: clear to auscultation bilaterally Cardio Rate: regular rate Rhythm: regular rhythm Heart sounds: S1 normal heart sound present, S2 normal heart sound present, no gallops, no murmurs and no rubs Bruits: no abdominal aortic bruits and no carotid bruits GI Palpation (GI): No Abdominal aortic bruit present, Soft to palpation, nontender, No hepatosplenomegaly present and No Rebound tenderness present Auscultation: normal bowel sounds General: Yes no CVA tenderness Back/Spine/Pelvis Back: no CVA tenderness Cervical Spine: cervical ROM normal and No Cervical spine tenderness Thoracic/Lumbar Spine: thoraco-lumbar ROM normal, No pain with thoraco-lumbar ROM, No thoracic spinal tenderness and No lumbar spinal tenderness Skin Lesions: no lesions Rashes: no rashes Trauma: no lacerations or abrasions Wounds: no wounds Nails: normal Neuro General: patient oriented x3 Cranial nerves: Yes Equal, round and reactive pupils present Cognition (Neuro): normal cognition Gait exam (Neuro): Normal gait present Motor exam (neuro): 5/5 motor strength present throughout Sensory Exam: No Sensory deficit (Neuro) Deep tendon reflexes (DTR's): Right patellar reflex intensity grade: 2+ and Left patellar reflex intensity grade: 2+ Extrem General: Yes normal to inspection and No edema Psych Appearance: grossly normal Affect: normal affect Attitude: cooperative Thought process: Normal thought process present Results AMB Hemoglobin A1c AMB Hemoglobin A1c 6.6 % Last Edit by Josephine Ludwig CMA on 11/15/23 11:20 Assessment and Plan Assessment & Plan (1) Adult general medical exam: Code(s): Z00.00 - Encounter for general adult medical examination without abnormal findings Plan: 33-year-old?male?presents?for?complete?physical?exam Encouraged?healthy?diet?with?active?lifestyle?and?plenty?of?exercise (2) Diabetes: Code(s): E11.9 - Type 2 diabetes mellitus without complications Plan: A1c?climbed?to?6.6%.??He?was?out?of?his?glipizide?for?while?but?has?it?again. I?had?decreased?his?glipizide?due?to?some?low?blood?sugars?at?prior?visit?where?his?A1c?was?5.9%. No?recent?low?blood?sugars Continue?current?medication?regimen Continue?diabetic?diet Continue?exercise?and?weight?loss. (3) Low HDL (under 40): Code(s): E78.6 - Lipoprotein deficiency Plan: HDL?is?a?little?too?low.??He?is?already?exercising?quite?a?bit. Allergy?to?shellfish?in?concerned?about?using a?fish?oil?tablet. He?can?try?flaxseed?oil (4) Allergy to shellfish: Code(s): Z91.013 - Allergy to seafood Plan: Gave?patient?a?script?for?EpiPen Orders: Orders AMB Hemoglobin A1c Today Z13.9 - Encounter for screening, unspecified Medications: New epinephrine (EpiPen 2-Walter) 0.3 mg (0.3 mL) IM Q4H 30 days PRN 2 ea 2RF anaphylaxis Z91.013 - Allergy to seafood Coding Level of Care Code Est Pt Level 3 (54753) Est Pt Prev Care 18-39y(47290) Diagnoses Adult general medical exam Z00.00 Diabetes E11.9 Low HDL (under 40) E78.6 Allergy to shellfish Z91.013 Additional Codes CLAUDINE-7 Assessment Billing - CLAUDINE-7 Assessment Tool: CLAUDINE-7 Assessment 22639 ([id number])
== END 2023-11-15 11:37 | disposition home or self-care (01) ==
PROVIDERS: PCP Family Medicine; Visit Provider Family Medicine
DX: Z00.00 Encounter for general adult medical examination without abnormal findings (principal); E11.9 Type 2 diabetes mellitus without complications; E78.6 Lipoprotein deficiency; Z91.013 Allergy to seafood
CPT/HCPCS: 83036; 99213; 99395

== ENCOUNTER 2024-02-21 09:37 | Outpatient (AMB) | payer BC, SELFPAY ==
--- NOTE | 2024-02-21 09:45 | A.OFFPC_ITS ---
Vital Signs 02/21/24 09:47 Height 6 ft 1 in Weight 274 lb 8 oz BMI 36.2 BP 110/70 Blood Pressure Location Rt brachial Position Sitting Respiration 12 Pulse 75 Pulse Source Pulse Oximeter Temp 97.3 F Temp Source Tympanic Pulse Oximetry (%) 97 Oxygen Delivery Method Room Air Intake Visit Reasons: f/u diabetes, hypertension Intake Note: F/u for DM and HTN Allergies shellfish derived Allergy (Mild, Verified 02/21/24 09:46) Swelling Tobacco use date assessed: 11/15/23 Dental Screening Dental Screen Date: 11/15/23 HPI f/u diabetes, hypertension HPI Details 33 y/o male presents to f/u diabetes. Last A1c 11/15/23 6.6%. Had been having complaints of low blood sugars. He is on metformin 750mg, glipizide 2.5mg A1c today 02/21/24 is 7.3%. Blood pressure today 110/70. 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 Joaquim Larkin, Mariana Baptiste, Moi Lambert and colleagues, with an educational lois from [employer]. Review of Systems Const Denies chills, Denies fatigue, Denies fever(s), Denies headache(s) and Denies weakness ENT Denies dizziness and Denies headache(s) Card Denies dyspnea Resp Denies cough, Denies dyspnea, Denies wheezing and Denies other (shortness of breath) Musc Denies numbness and Denies tingling Neuro Denies dizziness, Denies headache(s), Denies numbness, Denies tingling and Denies weakness Psych Denies anxiety and Denies depression Endo Denies fatigue Aller/Immun Denies wheezing Physical exam (Primary Care) Vital Signs: Last Vital Signs Temp 97.3 F 02/21/24 09:47 Pulse 75 02/21/24 09:47 Resp 12 02/21/24 09:47 BP 110/70 02/21/24 09:47 Pulse Ox 97 02/21/24 09:47 Oxygen Delivery Method Room Air 02/21/24 09:47 BMI result Body Mass Index 36.2 Tobacco/Smoking Status: Tobacco use Status Tobacco use date assessed 11/15/23 02/21/24 09:50 Patient Tobacco Use Status Never used Tobacco 02/21/24 09:50 e-Cigarette/Vaping Use Never Used 02/21/24 09:50 Thrive Assessment: Date of Thrive Assessment Date Thrive assessed 11/15/23 02/21/24 09:50 Const General: well developed; No acute distress Nutritional Appearance: well nourished Orientation/consciousness: patient oriented x3 HENMT Head: Yes normocephalic and Yes atraumatic Eyes General: appearance normal, both eyes and all related structures Pupils: Equal, round and reactive pupils present EOM: EOMs intact bilaterally Resp Effort & Inspection: normal respiratory effort Auscultation: clear to auscultation bilaterally Cardio Rate: regular rate Rhythm: regular rhythm Heart sounds: S1 normal heart sound present, S2 normal heart sound present, no gallops, no murmurs and no rubs Neuro General: patient oriented x3 and gait normal Cranial nerves: Yes Equal, round and reactive pupils present Psych Affect: normal affect Assessment and Plan Assessment & Plan (1) Diabetes: Code(s): E11.9 - Type 2 diabetes mellitus without complications Plan: A1c?has?climbed?to?7.3%.??Goal?is?less?than?7.0% He?is?taking?glipizide?2.5?mg?daily?and?metformin?750?mg?t.i.d. Will?switch?metformin?to?850?mg?t.i.d. Continue?diabetic?diet Orders: Orders AMB Hemoglobin A1c Today Z13.9 - Encounter for screening, unspecified Medications: Changed From metformin 750 mg (1.5 x 500 mg) PO TIDWMEAL 30 days 135 tabs 3RF To metformin 850 mg PO TIDWMEAL 90 tabs 3RF 30 days Coding Level of Care Code Est Pt Level 3 (42705) Diagnoses Diabetes E11.9
[2024-02-21 09:47] VITALS: BP 110/70; PULSE 75; RESP 12; TEMP 36.3; O2SAT 97; BMI 36.2
== END 2024-02-21 09:57 | disposition home or self-care (01) ==
PROVIDERS: PCP Family Medicine; Visit Provider Family Medicine
DX: E11.9 Type 2 diabetes mellitus without complications (principal)
CPT/HCPCS: 99213

== ENCOUNTER 2024-05-19 09:37 | Outpatient (AMB) | payer BC, SELFPAY ==
[2024-05-19 09:46] VITALS: BP 118/70; PULSE 83; RESP 14; O2SAT 97; BMI 37.1
--- NOTE | 2024-05-19 09:46 | MHC.PC.OV ---
Vital Signs 05/19/24 09:46 Height 6 ft 1 in Weight 281 lb 6 oz BMI 37.1 BP 118/70 Blood Pressure Location Lt brachial Position Sitting Respiration 14 Pulse 83 Pulse Source Pulse Oximeter Pulse Oximetry (%) 97 Oxygen Delivery Method Room Air Intake Visit Reasons: f/u diabetes Allergies shellfish derived Allergy (Mild, Verified 02/21/24 09:46) Swelling Tobacco use date assessed: 11/15/23 Dental Screening Dental Screen Date: 11/15/23 HPI f/u diabetes HPI Details 33 y/o male presents to f/u diabetes. Last A1c 02/21/24 7.3%. Increased metformin from 750mg t.i.d. to 850mg t.i.d. Continued his glipizide 2.5mg b.i.d. daily. A1c today 05/19/24 is 7.9%. He notes he sometimes forgets to take his afternoon metformin dose due to work. Notes morning blood sugars from 140s-180s. 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 1. Little interest or pleasure in doing things: not at all 2. Feeling down, depressed, or hopeless: not at all 3. Trouble falling or staying asleep, or sleeping too much: not at all 4. Feeling tired or having little energy: not at all 5. Poor appetite or overeating: more than half the days 6. Feeling bad about yourself - or that you are a failure or have let yourself or your family down: not at all 7. Trouble concentrating on things, such as reading the newspaper or watching television: not at all 8. Moving or speaking so slowly that other people could have noticed. Or the opposite - being so fidgety or restless that you have been moving around a lot more than usual: not at all 9. Thoughts that you would be better off or of hurting yourself in some way: not at all Total score: 2 Source: Developed by Drs. Joaquim Larkin, Mariana Baptiste, Moi Lambert and colleagues, with an educational lois from [email or web address]. Thrive Questionnaire Date Thrive assessed: 11/15/23 I am a: Patient What is your living situation today?: I have a steady place to live Within the past 12 months, did the food you bought not last and you didn't have the money to get more?: Never true Within the past 12 months, did you worry whether your food would run out before you got money to buy more?: Never true Do you have trouble paying for medicines?: No Do you have trouble getting transportation to medical appointments?: No Do you have trouble paying your heating and electricity bill?: No Do you have trouble taking care of your child, family member or friend?: No Do you have trouble with day-to-day activities such as bathing, preparing meals, shopping, managing finances, etc.?: No Are you currently unemployed and looking for a job?: No Are you interested in more education?: No Please select the resources that you would like help with: None Currently or been in a relationship where the following occur: No concerns reported THRIVE Score: 0 AUDIT C Alcohol Use Questionnaire (AUDIT-C) 1. How often do you have a drink containing alcohol?: Never Total Score: 0 CLAUDINE-7 AMB Questionnaire CLAUDINE-7 Date CLAUDINE - 7 assessed: 11/15/23 Feeling nervous, anxious, or on edge: 0 = Not at all Not being able to stop or control worryin = Not at all Worrying too much about different things: 0 = Not at all Trouble relaxin = Not at all Being so restless that it is hard to sit still: 0 = Not at all Becoming easily annoyed or irritable: 0 = Not at all Feeling afraid as if something awful might happen: 0 = Not at all Total CLAUDINE-7 score (0-4 normal; 5-9 mild; 10-14 moderate; 15-21 severe): 0 Source: Developed by Drs. Joaquim Larkin, Mariana Baptiste, Moi Lambert and colleagues, with an educational lois from [email or web address]. Review of Systems Const Denies chills, Denies fatigue, Denies fever(s), Denies headache(s) and Denies weakness ENT Denies dizziness and Denies headache(s) Card Denies dyspnea Resp Denies cough, Denies dyspnea, Denies wheezing and Denies other (shortness of breath) Musc Denies numbness and Denies tingling Neuro Denies dizziness, Denies headache(s), Denies numbness, Denies tingling and Denies weakness Psych Denies anxiety and Denies depression Endo Denies fatigue Aller/Immun Denies wheezing Physical exam (Primary Care) Vital Signs: Last Vital Signs Pulse 83 05/19/24 09:46 Resp 14 05/19/24 09:46 BP 118/70 05/19/24 09:46 Pulse Ox 97 05/19/24 09:46 Oxygen Delivery Method Room Air 05/19/24 09:46 BMI result Body Mass Index 37.1 Tobacco/Smoking Status: Tobacco use Status Tobacco use date assessed 11/15/23 05/19/24 09:48 Patient Tobacco Use Status Never used Tobacco 05/19/24 09:48 e-Cigarette/Vaping Use Never Used 05/19/24 09:48 PHQ-9: PHQ-9 Score PHQ-9: Total score 2 05/19/24 09:58 Thrive Assessment: Date of Thrive Assessment Date Thrive assessed 11/15/23 05/19/24 09:48 Currently or been in a relationship where the following occur: No concerns reported Const General: well developed; No acute distress Nutritional Appearance: well nourished and obese Orientation/consciousness: patient oriented x3 [facility] Head: Yes normocephalic and Yes atraumatic Eyes General: appearance normal, both eyes and all related structures Pupils: Equal, round and reactive pupils present EOM: EOMs intact bilaterally Resp Effort & Inspection: normal respiratory effort Auscultation: clear to auscultation bilaterally Cardio Rate: regular rate Rhythm: regular rhythm Heart sounds: S1 normal heart sound present, S2 normal heart sound present, no gallops, no murmurs and no rubs Neuro General: patient oriented x3 and gait normal Cranial nerves: Yes Equal, round and reactive pupils present Psych Affect: normal affect Coding Level of Care Code Est Pt Level 3 (63682) Diagnoses Poorly controlled diabetes mellitus E11.65 Assessment & Plan Assessment & Plan (1) Poorly controlled diabetes mellitus: Code(s): E11.65 - Type 2 diabetes mellitus with hyperglycemia Category: Medical Plan: A1c?has?climbed?to?7.9%.??Goal?is?less?than?7% Had?increased?his?metformin?last?visit. Will?increase?glipizide; he?will?take?10?mg?at?morning?dose?in?continue?2.5?mg?evening Work?at?a?diet?low?in?sugars?and?starches Patient?says?he?had?a?recent?diabetic?eye?exam.??Will?request?report Medications: Changed From glipizide ER 2.5 mg (1/2 x 5 mg) PO BID 30 days 30 tabs 1RF To glipizide ER 2 tabs (10 mg) in AM and 1/2 tab (2.5 mg) PM orally 2 times a day; 90 days 225 tabs 2RF
== END 2024-05-19 10:11 | disposition home or self-care (01) ==
PROVIDERS: PCP Family Medicine; Visit Provider Family Medicine
DX: E11.65 Type 2 diabetes mellitus with hyperglycemia (principal)

== ENCOUNTER 2024-06-08 09:41 | Outpatient (AMB) | payer BC, SELFPAY ==
[2024-06-08 09:44] VITALS: BMI 36.0
--- NOTE | 2024-06-08 09:44 | A.OFFVIS_ITS ---
VS Expanded 06/08/24 09:44 06/08/24 10:01 Height 6 ft 1 in 6 ft 1 in Weight 272 lb 14.916 oz 273 lb BMI 36.0 36.0 Intake Visit Reasons: T2DM/Left vm Allergies shellfish derived Allergy (Mild, Verified 02/21/24 09:46) Swelling Nutrition Presentation Details: Pt presents for MNT f/u for T2DM Has regained lost weight related to increasing portions and reports interest in resuming healthier eating ,reducingportions. BS Monitoring Most Recent Diabetes Results: Cholesterol 121 mg/dL (<200) 08/02/23 HDL Cholesterol 35 mg/dL (>40) L 08/02/23 Triglycerides 48 mg/dL (<150) 08/02/23 Creatinine 1.02 mg/dL (0.5-1.4) 08/02/23 Blood Urea Nitrogen 16 mg/dL (9-16) 08/02/23 Sodium 139 mmol/L (135-145) 08/02/23 Potassium 4.4 mmol/L (3.3-5.1) 08/02/23 Chloride 106 mmol/L (96-108) 08/02/23 Carbon Dioxide 26 mmol/L (22-29) 08/02/23 Calcium 9.8 mg/dL (8.4-10.2) 08/02/23 AST 17 U/L (5-37) 08/02/23 ALT 30 U/L (0-40) 08/02/23 Total Protein 7.6 g/dL (6.5-8.0) 08/02/23 Albumin 4.4 g/dL (3.5-5.0) 08/02/23 PZN-[id number]-Vv.Jeor Equation Height: 6 ft 1 in Weight: 273 lb Resting Metabolic Rate: 2243.50 Calculated Activity Level: Mild Activity Calories Needed to Maintain Weight: 3084.81 [facility] Medical History Elevated blood sugar History of head injury Family History Mother Diabetes Social History Housing: Apartment Patient Tobacco Use Status: Never used Tobacco e-Cigarette/Vaping Use: Never Used Second Hand Smoke Exposure: No service: No Current occupational status: employed 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 Current occupational exposures/hazards: No Cognitive needs: No Hearing needs: No Vision needs: No Assessment & Plan Assessment & Plan (1) Diabetes: Code(s): E11.9 - Type 2 diabetes mellitus without complications Category: Medical Plan: wt: 125 kg (123 kg on 04/2023) , 123 kg (July 2023), 124.5 (10/2023), 06/20 Est kcal needs as per MSJ: 3100 (40% carb, 30% protein/fat) Est fluid needs as per 30 ml/d: 3800 Est prot per day as per 1 g/kg bw: 123 Recommend fiber intake : 8-10 g per day and gradually increase to 25-28 g per day for women and 35-38 g for men or as tolerated Recommend sodium intake per day : less than 2000 mg Educated patient on: ( R = reviewed V = verbalizes understanding N/R = needs review N/A = not applicable * Food sources of carbohydrate, adequate serving sizes and its role in various health conditions: R * Differences between complex carbohydrates a simple carbohydrates, role of fiber in diet: R * Differences between types of fats and role in diet (mono on saturated fat fatty acids, saturated fatty acids, trans fats): R basic * Food sources of sodium in salt and healthy modifications for heart health in kidney health: R ,V * Healthy plate method concept: R * Physical activity: Benefits a precaution: R V * Hypoglycemia protocol (rule of 15): R * Dietary prevention of Hyperglycemia: R * ETOH intake : precaution with DM, liver health Patient Instructions: Resume reducing sugar intake (beverages/sweets) Follow healthy plate method reducing total carb to less than 100 g at meal time Choose fiber rich foods and lean protein Coding Level of Care Code Nutr Indiv Subseq (80874) Diagnoses Diabetes E11.9 Time Spent (min) 30
[2024-06-12 13:02] VITALS: BMI 36.0
== END 2024-06-08 10:05 | disposition home or self-care (01) ==
PROVIDERS: PCP Family Medicine; Visit Provider Dietitian, Registered
DX: E11.9 Type 2 diabetes mellitus without complications (principal)

== ENCOUNTER → 2024-06-08 09:41 | Outpatient (BNVA) | payer BC, SELFPAY | PROVIDERS: PCP Family Medicine; Visit Provider Dietitian, Registered | DX: E11.9 Type 2 diabetes mellitus without complications (principal); E66.9 Obesity, unspecified; Z68.36 Body mass index [BMI] 36.0-36.9, adult | CPT/HCPCS: 97803 ==

== ENCOUNTER 2024-08-24 08:37 | Outpatient (AMB) | payer BC, SELFPAY ==
--- NOTE | 2024-08-24 08:50 | A.OFFPC_ITS ---
Vital Signs 08/24/24 08:58 Height 6 ft 1 in Weight 281 lb 6 oz BMI 37.1 BP 114/68 Blood Pressure Location Lt brachial Position Sitting Respiration 16 Pulse 73 Pulse Source Pulse Oximeter Temp 98.0 F Temp Source Oral Pulse Oximetry (%) 96 Oxygen Delivery Method Room Air Intake Visit Reasons: f/u diabetes Intake Note: follow up dm Rails Developer Required: No Allergies shellfish derived Allergy (Mild, Verified 08/24/24 08:50) Swelling Medication List - Last Reconciled 08/24/24 by Xavier Stoner MD epinephrine (EpiPen 2-Walter) 0.3 mg (0.3 mL) IM Q4H PRN 30 days glipizide ER 2 tabs (10 mg) in AM and 1/2 tab (2.5 mg) PM orally 2 times a day; 90 days metformin 850 mg PO TIDWMEAL 30 days Tobacco use date assessed: 11/15/23 Dental Screening Dental Screen Date: 11/15/23 HPI f/u diabetes HPI Details 34 y/o male presents to f/u diabetes. Last A1c 7.9%. A1c today 08/24/24 is 7.1%. He is on metformin 850mg t.i.d, glipizide. HPI Comments History of Present Illness Details Documentation assistance for Xavier Stoner MD, was provided by Chauncey Morrison,? Manager Flight Operations on 08/24/2024 at 9:05 AM EST. I, Dr. Stoner, have read, observed, and verified documentation. ?? 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 1. Little interest or pleasure in doing things: not at all 2. Feeling down, depressed, or hopeless: not at all 3. Trouble falling or staying asleep, or sleeping too much: not at all 4. Feeling tired or having little energy: not at all 5. Poor appetite or overeating: not at all 6. Feeling bad about yourself - or that you are a failure or have let yourself or your family down: not at all 7. Trouble concentrating on things, such as reading the newspaper or watching television: not at all 8. Moving or speaking so slowly that other people could have noticed. Or the opposite - being so fidgety or restless that you have been moving around a lot more than usual: not at all 9. Thoughts that you would be better off or of hurting yourself in some way: not at all Total score: 0 Source: Developed by Drs. Joaquim Larkin, Mariana Baptiste, Moi Lambert and colleagues, with an educational lois from [employer]. Thrive Questionnaire Date Thrive assessed: 05/19/24 I am a: Patient What is your living situation today?: I have a steady place to live Within the past 12 months, did the food you bought not last and you didn't have the money to get more?: Never true Within the past 12 months, did you worry whether your food would run out before you got money to buy more?: Never true Do you have trouble paying for medicines?: No Do you have trouble getting transportation to medical appointments?: No Do you have trouble paying your heating and electricity bill?: No Do you have trouble taking care of your child, family member or friend?: No Do you have trouble with day-to-day activities such as bathing, preparing meals, shopping, managing finances, etc.?: No Are you currently unemployed and looking for a job?: No Are you interested in more education?: No Please select the resources that you would like help with: None Currently or been in a relationship where the following occur: No concerns reported THRIVE Score: 0 AUDIT C Alcohol Use Questionnaire (AUDIT-C) 1. How often do you have a drink containing alcohol?: Never Total Score: 0 CLAUDINE-7 AMB Questionnaire CLAUDINE-7 Date CLAUDINE - 7 assessed: 11/15/23 Feeling nervous, anxious, or on edge: 0 = Not at all Not being able to stop or control worryin = Not at all Worrying too much about different things: 0 = Not at all Trouble relaxin = Not at all Being so restless that it is hard to sit still: 0 = Not at all Becoming easily annoyed or irritable: 0 = Not at all Feeling afraid as if something awful might happen: 0 = Not at all Total CLAUDINE-7 score (0-4 normal; 5-9 mild; 10-14 moderate; 15-21 severe): 0 Source: Developed by Drs. Joaquim Larkin, Mariana Baptiste, Moi Lambert and colleagues, with an educational lois from [employer]. Review of Systems Const Denies chills, Denies fatigue, Denies fever(s), Denies headache(s) and Denies weakness ENT Denies dizziness and Denies headache(s) Card Denies dyspnea Resp Denies cough, Denies dyspnea, Denies wheezing and Denies other (shortness of breath) Musc Denies numbness and Denies tingling Neuro Denies dizziness, Denies headache(s), Denies numbness, Denies tingling and Denies weakness Psych Denies anxiety and Denies depression Endo Denies fatigue Aller/Immun Denies wheezing Physical exam (Primary Care) Vital Signs: Last Vital Signs Temp 98.0 F 08/24/24 08:58 Pulse 73 08/24/24 08:58 Resp 16 08/24/24 08:58 BP 114/68 08/24/24 08:58 Pulse Ox 96 08/24/24 08:58 Oxygen Delivery Method Room Air 08/24/24 08:58 BMI result Body Mass Index 37.1 Tobacco/Smoking Status: Tobacco use Status Tobacco use date assessed 11/15/23 08/24/24 08:54 Patient Tobacco Use Status Never used Tobacco 08/24/24 08:54 e-Cigarette/Vaping Use Never Used 08/24/24 08:54 PHQ-9: PHQ-9 Score PHQ-9: Total score 0 08/24/24 09:01 Thrive Assessment: Date of Thrive Assessment Date Thrive assessed 05/19/24 08/24/24 08:54 Currently or been in a relationship where the following occur: No concerns reported Const General: well developed; No acute distress Nutritional Appearance: well nourished Orientation/consciousness: patient oriented x3 HENMT Head: Yes normocephalic and Yes atraumatic Eyes General: appearance normal, both eyes and all related structures Pupils: Equal, round and reactive pupils present EOM: EOMs intact bilaterally Resp Effort & Inspection: normal respiratory effort Neuro General: patient oriented x3 and gait normal Cranial nerves: Yes Equal, round and reactive pupils present Psych Affect: normal affect Coding Level of Care Code Est Pt Level 3 (65198) Diagnoses Diabetes E11.9 Assessment & Plan Assessment & Plan (1) Diabetes: Code(s): E11.9 - Type 2 diabetes mellitus without complications Category: Medical Plan: A1c?much?improved?and?near?goal?of?less?than?7% No?medication?changes?made?today. Continue?diabetic?diet Encouraged?exercise?and?weight?loss
[2024-08-24 08:58] VITALS: BP 114/68; PULSE 73; RESP 16; TEMP 36.7; O2SAT 96; BMI 37.1
== END 2024-08-24 09:15 | disposition home or self-care (01) ==
PROVIDERS: PCP Family Medicine; Visit Provider Family Medicine
DX: E11.9 Type 2 diabetes mellitus without complications (principal)

== ENCOUNTER → 2024-08-24 08:37 | Outpatient (BNVA) | payer BC, SELFPAY | PROVIDERS: PCP Family Medicine; Visit Provider Family Medicine | DX: E11.9 Type 2 diabetes mellitus without complications (principal); Z79.84 Long term (current) use of oral hypoglycemic drugs | CPT/HCPCS: 83036; 96127 ==

== ENCOUNTER 2024-09-06 08:56 | Outpatient (AMB) | payer BC, SELFPAY ==
[2024-09-06 09:09] VITALS: BMI 35.6
--- NOTE | 2024-09-06 09:09 | A.OFFVIS_ITS ---
VS Expanded 09/06/24 09:09 Height 6 ft 1 in Weight 270 lb 1.06 oz BMI 35.6 Intake Visit Reasons: T2DM Allergies shellfish derived Allergy (Mild, Verified 08/24/24 08:50) Swelling Nutrition Presentation Details: Pt presents for MNT f/u for T2DM Pt monitoring BG, and for the past week BG ranges from 90-140s Pt reports carrying with snack in case of low blood glucose Working on meal prep ( nutre meal plan for lunch - 400-500 calories, 40 g protein, 4-6 g fiber ) water: 12-15 cup water or low sugar beverage/d BS Monitoring Most Recent Diabetes Results: No Data to Display PFSH Medical History Elevated blood sugar History of head injury Family History Mother Diabetes Social History Housing: Apartment Patient Tobacco Use Status: Never used Tobacco e-Cigarette/Vaping Use: Never Used Second Hand Smoke Exposure: No service: No Current occupational status: employed 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 Current occupational exposures/hazards: No Cognitive needs: No Hearing needs: No Vision needs: No Assessment & Plan Assessment & Plan (1) Diabetes: Code(s): E11.9 - Type 2 diabetes mellitus without complications Category: Medical Plan: wt: 122 kg (09/19 Est kcal needs as per MSJ: 3100 (40% carb, 30% protein/fat) Est fluid needs as per 30 ml/d: 3800 Est prot per day as per 1 g/kg bw: 123 Recommend fiber intake : 8-10 g per day and gradually increase to 25-28 g per day for women and 35-38 g for men or as tolerated Recommend sodium intake per day : less than 2000 mg Educated patient on: ( R = reviewed V = verbalizes understanding N/R = needs review N/A = not applicable * Food sources of carbohydrate, adequate serving sizes and its role in various health conditions: R * Differences between complex carbohydrates a simple carbohydrates, role of fiber in diet: R * Differences between types of fats and role in diet (mono on saturated fat fatty acids, saturated fatty acids, trans fats): R basic * Food sources of sodium in salt and healthy modifications for heart health in kidney health: R ,V * Healthy plate method concept: R * Physical activity: Benefits a precaution: R V * Hypoglycemia protocol (rule of 15): R * Dietary prevention of Hyperglycemia: R * ETOH intake : precaution with DM, liver health Patient Instructions: Continue working on choosing foods low in saturated fats - read food labels - Choose nut butters/ avocado /olive oil as spread Coding Level of Care Code Nutr Indiv Subseq (19161) Diagnoses Diabetes E11.9
== END 2024-09-06 09:42 | disposition home or self-care (01) ==
LOC: HO.ENCR 08:57
PROVIDERS: PCP Family Medicine; Visit Provider Dietitian, Registered
DX: E11.9 Type 2 diabetes mellitus without complications (principal)

== ENCOUNTER → 2024-09-06 08:56 | Outpatient (BNVA) | payer BC, SELFPAY | PROVIDERS: PCP Family Medicine; Visit Provider Dietitian, Registered | DX: E11.9 Type 2 diabetes mellitus without complications (principal); Z71.3 Dietary counseling and surveillance | CPT/HCPCS: 97803 ==

== ENCOUNTER 2024-11-27 11:19 | Outpatient (AMB) | payer BC, SELFPAY ==
--- NOTE | 2024-11-27 11:21 | A.OFFPC_ITS ---
Vital Signs 11/27/24 11:30 Height 6 ft 1 in Weight 271 lb 6 oz BMI 35.8 BP 118/64 Blood Pressure Location Lt brachial Position Sitting Respiration 16 Pulse 81 Pulse Source Pulse Oximeter Temp 97.8 F Temp Source Oral Pulse Oximetry (%) 98 Oxygen Delivery Method Room Air Intake Visit Reasons: f/u diabetes Allergies shellfish derived Allergy (Mild, Verified 11/27/24 11:28) Swelling Medication List - Last Reconciled 11/27/24 by Xavier Stoner MD epinephrine (EpiPen 2-Walter) 0.3 mg (0.3 mL) IM Q4H PRN 30 days glipizide ER 2 tabs (10 mg) in AM and 1/2 tab (2.5 mg) PM orally 2 times a day; 90 days metformin 850 mg PO TIDWMEAL 90 days Tobacco use date assessed: 11/27/24 Dental Screening Dental Screen Date: 11/27/24 Did you have a dental visit in the last 12 months?: Yes Did you have a dental problem in the last 6 months where you did not have access to dental care?: No Was dental information given to patient?: No HPI f/u diabetes HPI Details 34 y/o male presents to f/u diabetes. Last A1c 08/24/24 7.1%. A1c today 6.5%, which improved from prior. He is on glipizide, metformin 850mg t.i.d. Continues to work on a diabetic diet. Has lost some weight since June. Has been going to the gym twice a week for exercise. Pt notes he had seen his eye doctor about 2 weeks ago for his eye exam. HPI Comments History of Present Illness Details Documentation assistance for Xavier Stoner MD, was provided by Chauncey Morrison,? Photo Machine Operator on 11/27/2024 at 11:56 AM [place]. I, Dr. Stoner, have read, observed, and verified documentation. ?? 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 Current occupational exposures/hazards: No Cognitive needs: No Hearing needs: No Vision needs: No Questionnaire Thrive Questionnaire Date Thrive assessed: 11/27/24 I am a: Patient What is your living situation today?: I have a steady place to live Within the past 12 months, did the food you bought not last and you didn't have the money to get more?: Never true Within the past 12 months, did you worry whether your food would run out before you got money to buy more?: Never true Do you have trouble paying for medicines?: No Do you have trouble getting transportation to medical appointments?: No Do you have trouble paying your heating and electricity bill?: No Do you have trouble taking care of your child, family member or friend?: No Do you have trouble with day-to-day activities such as bathing, preparing meals, shopping, managing finances, etc.?: No Are you currently unemployed and looking for a job?: No Are you interested in more education?: No Please select the resources that you would like help with: None Currently or been in a relationship where the following occur: No concerns reported THRIVE Score: 0 CLAUDINE-7 AMB Questionnaire CLAUDINE-7 Date CLAUDINE - 7 assessed: 11/15/23 Source: Developed by Drs. Joaquim Larkin, Mariana Baptiste, Moi Lambert and colleagues, with an educational lois from [employer]. Review of Systems Const Denies chills, Denies fatigue, Denies fever(s), Denies headache(s) and Denies weakness ENT Denies dizziness and Denies headache(s) Card Denies dyspnea Resp Denies cough, Denies dyspnea, Denies wheezing and Denies other (shortness of breath) Musc Denies numbness and Denies tingling Neuro Denies dizziness, Denies headache(s), Denies numbness, Denies tingling and Denies weakness Psych Denies anxiety and Denies depression Endo Denies fatigue Aller/Immun Denies wheezing Physical exam (Primary Care) Vital Signs: Last Vital Signs Temp 97.8 F 11/27/24 11:30 Pulse 81 11/27/24 11:30 Resp 16 11/27/24 11:30 BP 118/64 11/27/24 11:30 Pulse Ox 98 11/27/24 11:30 Oxygen Delivery Method Room Air 11/27/24 11:30 BMI result Body Mass Index 35.8 Tobacco/Smoking Status: Tobacco use Status Tobacco use date assessed 11/27/24 11/27/24 11:33 Patient Tobacco Use Status Never used Tobacco 11/27/24 11:24 e-Cigarette/Vaping Use Never Used 11/27/24 11:24 Thrive Assessment: Date of Thrive Assessment Date Thrive assessed 11/27/24 11/27/24 11:33 Currently or been in a relationship where the following occur: No concerns reported Const General: well developed; No acute distress Nutritional Appearance: well nourished Orientation/consciousness: patient oriented x3 HENMT Head: Yes normocephalic and Yes atraumatic Eyes General: appearance normal, both eyes and all related structures Pupils: Equal, round and reactive pupils present EOM: EOMs intact bilaterally Resp Effort & Inspection: normal respiratory effort Auscultation: clear to auscultation bilaterally Cardio Rate: regular rate Rhythm: regular rhythm Heart sounds: S1 normal heart sound present, S2 normal heart sound present, no gallops, no murmurs and no rubs Neuro General: patient oriented x3 and gait normal Cranial nerves: Yes Equal, round and reactive pupils present Psych Affect: normal affect Coding Level of Care Code Est Pt Level 3 (34929) Diagnoses Diabetes E11.9 Assessment & Plan Assessment & Plan (1) Diabetes: Code(s): E11.9 - Type 2 diabetes mellitus without complications Category: Medical Plan: A1c?now?6.5%.??Good?control.??Goal?is?less?than?7.0% Continue?current?medication?regimen Continue?diabetic?diet?and?exercise Congratulated?patient?on?weight?loss?encouraged?further?weight?loss He?had?a?reason?diabetic?eye?exam?and?will?bring?in?the?report.??Up-to-date Medications: Changed From metformin 850 mg PO TIDWMEAL 30 days 90 tabs 3RF To metformin 850 mg PO TIDWMEAL 90 days 270 tabs 3RF
[2024-11-27 11:30] VITALS: BP 118/64; PULSE 81; RESP 16; TEMP 36.6; O2SAT 98; BMI 35.8
== END 2024-11-27 12:00 | disposition home or self-care (01) ==
LOC: HO.HMCFM 11:20
PROVIDERS: PCP Family Medicine; Visit Provider Family Medicine
DX: E11.9 Type 2 diabetes mellitus without complications (principal)

== ENCOUNTER → 2024-11-27 11:19 | Outpatient (BNVA) | payer BC, SELFPAY | PROVIDERS: PCP Family Medicine; Visit Provider Family Medicine | DX: Z13.89 Encounter for screening for other disorder (principal) ==

== ENCOUNTER 2025-03-02 09:30 | Outpatient (AMB) | payer BC, SELFPAY ==
--- NOTE | 2025-03-02 09:42 | A.OFFPC_ITS ---
Vital Signs 03/02/25 09:48 Height 6 ft 1 in Weight 272 lb BMI 35.9 BP 108/74 Blood Pressure Location Rt brachial Position Sitting Respiration 16 Pulse 79 Pulse Source Pulse Oximeter Temp 97.4 F Temp Source Temporal Artery Scan Pulse Oximetry (%) 96 Oxygen Delivery Method Room Air Intake Visit Reasons: f/u diabetes Intake Note: Rupert presents in the office today for a follow up to diabetes. Allergies shellfish derived Allergy (Mild, Verified 03/02/25 09:46) Swelling Medication List - Last Reconciled 03/02/25 by Xavier Stoner MD epinephrine (EpiPen 2-Walter) 0.3 mg (0.3 mL) IM Q4H PRN 30 days glipizide ER 2 tabs (10 mg) in AM and 1/2 tab (2.5 mg) PM orally 2 times a day; 90 days metformin 850 mg PO TIDWMEAL 90 days Tobacco use date assessed: 03/02/25 Dental Screening Dental Screen Date: 03/02/25 Did you have a dental visit in the last 12 months?: Yes Did you have a dental problem in the last 6 months where you did not have access to dental care?: No Was dental information given to patient?: Patient has dentist HPI f/u diabetes HPI Details 34 y/o male presents to f/u diabetes. Last A1c 11/27/24 6.5%. He is on glipizide, metformin 850mg t.i.d. A1c today 03/02/25 7.1%. Recent eye exam. Eye exam in October did show mild changes L retina. 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 Current occupational exposures/hazards: No Cognitive needs: No Hearing needs: No Vision needs: No Questionnaire Thrive Questionnaire Date Thrive assessed: 08/24/24 I am a: Patient What is your living situation today?: I have a steady place to live Within the past 12 months, did the food you bought not last and you didn't have the money to get more?: Never true Within the past 12 months, did you worry whether your food would run out before you got money to buy more?: Never true Do you have trouble paying for medicines?: No Do you have trouble getting transportation to medical appointments?: No Do you have trouble paying your heating and electricity bill?: No Do you have trouble taking care of your child, family member or friend?: No Do you have trouble with day-to-day activities such as bathing, preparing meals, shopping, managing finances, etc.?: No Are you currently unemployed and looking for a job?: No Are you interested in more education?: No Please select the resources that you would like help with: None Currently or been in a relationship where the following occur: No concerns reported THRIVE Score: 0 CLAUDINE-7 AMB Questionnaire CLAUDINE-7 Date CLAUDINE - 7 assessed: 11/15/23 Source: Developed by Drs. Joaquim Larkin, Mariana Baptiste, Moi Lambert and colleagues, with an educational lois from [employer]. Review of Systems Const Denies chills, Denies fatigue, Denies fever(s), Denies headache(s) and Denies weakness ENT Denies dizziness and Denies headache(s) Card Denies dyspnea Resp Denies cough, Denies dyspnea, Denies wheezing and Denies other (shortness of breath) Musc Denies numbness and Denies tingling Neuro Denies dizziness, Denies headache(s), Denies numbness, Denies tingling and Denies weakness Psych Denies anxiety and Denies depression Endo Denies fatigue Aller/Immun Denies wheezing Physical exam (Primary Care) Vital Signs: Last Vital Signs Temp 97.4 F 03/02/25 09:48 Pulse 79 03/02/25 09:48 Resp 16 03/02/25 09:48 BP 108/74 03/02/25 09:48 Pulse Ox 96 03/02/25 09:48 Oxygen Delivery Method Room Air 03/02/25 09:48 BMI result Body Mass Index 35.9 Tobacco/Smoking Status: Tobacco use Status Tobacco use date assessed 03/02/25 03/02/25 09:51 Patient Tobacco Use Status Never used Tobacco 03/02/25 09:47 e-Cigarette/Vaping Use Never Used 03/02/25 09:47 Thrive Assessment: Date of Thrive Assessment Date Thrive assessed 08/24/24 03/02/25 09:44 Currently or been in a relationship where the following occur: No concerns reported Const General: well developed; No acute distress Nutritional Appearance: well nourished Orientation/consciousness: patient oriented x3 HENMT Head: Yes normocephalic and Yes atraumatic Eyes General: appearance normal, both eyes and all related structures Pupils: Equal, round and reactive pupils present EOM: EOMs intact bilaterally Resp Effort & Inspection: normal respiratory effort Auscultation: clear to auscultation bilaterally Cardio Rate: regular rate Rhythm: regular rhythm Heart sounds: S1 normal heart sound present, S2 normal heart sound present, no gallops, no murmurs and no rubs Neuro General: patient oriented x3 and gait normal Cranial nerves: Yes Equal, round and reactive pupils present Psych Affect: normal affect Coding Level of Care Code Est Pt Level 3 (81528) Diagnoses Diabetes E11.9 Assessment & Plan Assessment & Plan (1) Diabetes: Code(s): E11.9 - Type 2 diabetes mellitus without complications Category: Medical Plan: A1c climbed significantly from 6.5% to 7.1%. Mildly above goal of less than 7.0% He is taking glipizide and metformin as prescribed We discussed holding off on changing his medication regimen today and working on lifestyle changes. However, we did discuss that his eye exam in October did show some mild changes at left retina so if A1c is not significantly improved at his next visit we should adjust his medication regimen. Patient understands and agrees. Orders: Orders AMB Hemoglobin A1c Today E11.65 - Type 2 diabetes mellitus with hyperglycemia, E11.9 - Type 2 diabetes mellitus without complications
[2025-03-02 09:48] VITALS: BP 108/74; PULSE 79; RESP 16; TEMP 36.3; O2SAT 96; BMI 35.9
== END 2025-03-02 10:12 | disposition home or self-care (01) ==
LOC: HO.HMCFM 09:31
PROVIDERS: PCP Family Medicine; Visit Provider Family Medicine
DX: E11.9 Type 2 diabetes mellitus without complications (principal)

== ENCOUNTER 2025-05-09 09:06 | Outpatient (AMB) | payer BC, SELFPAY ==
--- NOTE | 2025-05-09 09:09 | A.OFFVIS_ITS ---
VS Expanded 05/09/25 09:10 05/14/25 12:45 Height 6 ft 1 in 6 ft 1 in Weight 269 lb 2.951 oz 269 lb BMI 35.5 35.5 Intake Visit Reasons: Diabetes. Missed appointment. Allergies shellfish derived Allergy (Mild, Verified 03/02/25 09:46) Swelling Nutrition Presentation Details: Pt presents for MNT f/u for T2DM Pt reports doing ok, working on diet modifications some days are more challenging than others in relation to increased appetite Patient reports working reading food labels and choosing lower carb and high- protein snack bars to have a snacks. Patient reports working on bringing a packed lunch to work, choosing non perishable foods. Has fruits smoothies at night Patient denies having hypoglycemia Food frequency Fish: Omits due to shellfish derived allergic reaction Fruits 0-1 day Vegetables a couple times a week Dairy 3-4 per day Beverages: Water, vitamin herrera low sugar beverages FRF-Cqgbola-Vf.Jeor Equation Height: 6 ft 1 in Weight: 269 lb Resting Metabolic Rate: 2225.38 Calculated Activity Level: Moderate Activity Calories Needed to Maintain Weight: 3449.34 [facility] Medical History Elevated blood sugar History of head injury Family History Mother Diabetes Social History (Updated 03/02/25 @ 09:47 by Nasra Abernathy MA) Housing: Apartment Alcohol intake: never Patient Tobacco Use Status: Never used Tobacco e-Cigarette/Vaping Use: Never Used Second Hand Smoke Exposure: No service: No Current occupational status: employed 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 Current occupational exposures/hazards: No Cognitive needs: No Hearing needs: No Vision needs: No Assessment & Plan Assessment & Plan (1) Diabetes: Code(s): E11.9 - Type 2 diabetes mellitus without complications Category: Medical Plan: wt: 122 kg (09/19), 123kg (05/22) Est kcal needs as per MSJ: 3100 (40% carb, 30% protein/fat) Est fluid needs as per 30 ml/d: 3800 Est prot per day as per 1 g/kg bw: 123 Recommend fiber intake : 8-10 g per day and gradually increase to 25-28 g per day for women and 35-38 g for men or as tolerated Recommend sodium intake per day : less than 2000 mg Educated patient on: ( R = reviewed V = verbalizes understanding N/R = needs review N/A = not applicable * Food sources of carbohydrate, adequate serving sizes and its role in various health conditions: R * Differences between complex carbohydrates a simple carbohydrates, role of fiber in diet: R * Differences between types of fats and role in diet (mono on saturated fat fatty acids, saturated fatty acids, trans fats): R basic * Food sources of sodium in salt and healthy modifications for heart health in kidney health: R ,V * Healthy plate method concept: R * Physical activity: Benefits a precaution: R V * Hypoglycemia protocol (rule of 15): R * Dietary prevention of Hyperglycemia: R * ETOH intake : precaution with DM, liver health Patient Instructions: Include less processed foods as snack : fruit and nuts or 1/2 peanut butter sand choose lower sugar smoothies: combining vegetables and reducing amount of fruits in the smoothies Coding Level of Care Code Nutr Indiv Subseq (33221) Diagnoses Diabetes E11.9 Time Spent (min) 30
[2025-05-09 09:10] VITALS: BMI 35.5
[2025-05-14 12:45] VITALS: BMI 35.5
== END 2025-05-09 09:35 | disposition home or self-care (01) ==
LOC: HO.ENCR 09:06
PROVIDERS: PCP Family Medicine; Visit Provider Dietitian, Registered
DX: E11.9 Type 2 diabetes mellitus without complications (principal)

== ENCOUNTER → 2025-05-09 09:06 | Outpatient (BNVA) | payer SELFPAY | PROVIDERS: PCP Family Medicine; Visit Provider Dietitian, Registered | DX: E11.9 Type 2 diabetes mellitus without complications (principal) | CPT/HCPCS: 97803 ==

== ENCOUNTER 2025-06-11 09:29 | Outpatient (AMB) | payer OTHER, SELFPAY ==
--- NOTE | 2025-06-11 09:33 | MHC.PC.OV ---
Vital Signs 06/11/25 09:35 Height 6 ft 1 in Weight 270 lb 4 oz BMI 35.7 BP 122/76 Blood Pressure Location Rt brachial Position Sitting Pulse 78 Pulse Source Pulse Oximeter Pulse Oximetry (%) 98 Oxygen Delivery Method Room Air Intake Visit Reasons: f/u DM Allergies shellfish derived Allergy (Mild, Verified 06/11/25 09:36) Swelling Tobacco use date assessed: 06/11/25 Dental Screening Dental Screen Date: 06/11/25 Did you have a dental visit in the last 12 months?: Yes Did you have a dental problem in the last 6 months where you did not have access to dental care?: No Was dental information given to patient?: Patient has dentist HPI f/u DM HPI Details 35 y/o male presents to f/u diabetes. A1c today 6.3%. He is on metformin 850mg t.i.d, glipizide. HPI Comments History of Present Illness Details Documentation assistance for Xavier Stoner MD, was provided by Chauncey Morrison,? Therapeutic Program Worker on 06/11/2025 at 9:48 AM EST. I, Dr. Stoner, have read, observed, and verified documentation. ?? 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 1. Little interest or pleasure in doing things: not at all 2. Feeling down, depressed, or hopeless: not at all 3. Trouble falling or staying asleep, or sleeping too much: not at all 4. Feeling tired or having little energy: not at all 5. Poor appetite or overeating: not at all 6. Feeling bad about yourself - or that you are a failure or have let yourself or your family down: not at all 7. Trouble concentrating on things, such as reading the newspaper or watching television: not at all 8. Moving or speaking so slowly that other people could have noticed. Or the opposite - being so fidgety or restless that you have been moving around a lot more than usual: not at all 9. Thoughts that you would be better off or of hurting yourself in some way: not at all Total score: 0 Source: Developed by Drs. Joaquim Larkin, Mariana Baptiste, Moi Lambert and colleagues, with an educational lois from [employer]. Thrive Questionnaire Date Thrive assessed: 08/24/24 I am a: Patient What is your living situation today?: I have a steady place to live Within the past 12 months, did the food you bought not last and you didn't have the money to get more?: Never true Within the past 12 months, did you worry whether your food would run out before you got money to buy more?: Never true Do you have trouble paying for medicines?: No Do you have trouble getting transportation to medical appointments?: No Do you have trouble paying your heating and electricity bill?: No Do you have trouble taking care of your child, family member or friend?: No Do you have trouble with day-to-day activities such as bathing, preparing meals, shopping, managing finances, etc.?: No Are you currently unemployed and looking for a job?: No Are you interested in more education?: No Please select the resources that you would like help with: None Currently or been in a relationship where the following occur: No concerns reported THRIVE Score: 0 AUDIT C Alcohol Use Questionnaire (AUDIT-C) 1. How often do you have a drink containing alcohol?: Never 3. How often do you have six or more drinks on one occasion?: Never Total Score: 0 CLAUDINE-7 AMB Questionnaire CLAUDINE-7 Date CLAUDINE - 7 assessed: 08/24/24 Feeling nervous, anxious, or on edge: 0 = Not at all Not being able to stop or control worryin = Not at all Worrying too much about different things: 0 = Not at all Trouble relaxin = Not at all Being so restless that it is hard to sit still: 0 = Not at all Becoming easily annoyed or irritable: 0 = Not at all Feeling afraid as if something awful might happen: 0 = Not at all Total CLAUDINE-7 score (0-4 normal; 5-9 mild; 10-14 moderate; 15-21 severe): 0 Source: Developed by Drs. Joaquim Larkin, Mariana Baptiste, Moi Lambert and colleagues, with an educational lois from [employer]. Review of Systems Const Denies chills, Denies fatigue, Denies fever(s), Denies headache(s) and Denies weakness ENT Denies dizziness and Denies headache(s) Card Denies dyspnea Resp Denies cough, Denies dyspnea, Denies wheezing and Denies other (shortness of breath) Musc Denies numbness and Denies tingling Neuro Denies dizziness, Denies headache(s), Denies numbness, Denies tingling and Denies weakness Psych Denies anxiety and Denies depression Endo Denies fatigue Aller/Immun Denies wheezing Physical exam (Primary Care) Vital Signs: Last Vital Signs Pulse 78 06/11/25 09:35 BP 122/76 06/11/25 09:35 Pulse Ox 98 06/11/25 09:35 Oxygen Delivery Method Room Air 06/11/25 09:35 BMI result Body Mass Index 35.7 Tobacco/Smoking Status: Tobacco use Status Tobacco use date assessed 06/11/25 06/11/25 09:40 Patient Tobacco Use Status Never used Tobacco 06/11/25 09:40 e-Cigarette/Vaping Use Never Used 06/11/25 09:40 PHQ-9: PHQ-9 Score PHQ-9: Total score 0 06/11/25 09:47 Thrive Assessment: Date of Thrive Assessment Date Thrive assessed 08/24/24 06/11/25 09:40 Currently or been in a relationship where the following occur: No concerns reported Const General: well developed; No acute distress Nutritional Appearance: well nourished Orientation/consciousness: patient oriented x3 HENMT Head: Yes normocephalic and Yes atraumatic Eyes General: appearance normal, both eyes and all related structures Pupils: Equal, round and reactive pupils present EOM: EOMs intact bilaterally Resp Effort & Inspection: normal respiratory effort Neuro General: patient oriented x3 and gait normal Cranial nerves: Yes Equal, round and reactive pupils present Psych Affect: normal affect Results AMB Hemoglobin A1c AMB Hemoglobin A1c 6.3 % Last Edit by Natasha Patricia CMA on 06/11/25 09:47 Results Reviewed Results Reviewed: Laboratory Last Values Hgb A1c (Clinic) 6.3 % (4.0-6.0) H 06/11/25 09:41 Coding Level of Care Code Est Pt Level 3 (65834) Diagnoses Diabetes E11.9 Assessment & Plan Assessment & Plan (1) Diabetes: Code(s): E11.9 - Type 2 diabetes mellitus without complications Category: Medical Plan: A1c now 6.3%. Previously A1c was 7.1% and his border guard had noted changes on eye exam. Patient improved lifestyle and now has significantly improved blood sugar control. Continue current medication regimen Continue diabetic diet, encouraged weight loss and exercise Will continue to monitor Orders: Orders AMB Hemoglobin A1c Today Z13.9 - Encounter for screening, unspecified Comprehensive [place]. Panel Fast Today Z00.00 - Encounter for general adult medical examination without abnormal findings TSH reflex Free T4 Today Z00.00 - Encounter for general adult medical examination without abnormal findings UA CC w/rflx Micro + Cult Today Z00.00 - Encounter for general adult medical examination without abnormal findings Microalbumin, Random (w Creat) Today I10 - Essential (primary) hypertension Lipid Panel Today Z00.00 - Encounter for general adult medical examination without abnormal findings
[2025-06-11 09:35] VITALS: BP 122/76; PULSE 78; O2SAT 98; BMI 35.7
== END 2025-06-11 09:52 | disposition home or self-care (01) ==
LOC: HO.HMCFM 09:29
PROVIDERS: PCP Family Medicine; Visit Provider Family Medicine
DX: E11.9 Type 2 diabetes mellitus without complications (principal); Z13.9 Encounter for screening, unspecified

== ENCOUNTER → 2025-06-11 09:29 | Outpatient (BNVA) | payer OTHER, SELFPAY | PROVIDERS: PCP Family Medicine; Visit Provider Family Medicine | DX: E11.9 Type 2 diabetes mellitus without complications (principal) | CPT/HCPCS: 83036; 96127 ==